=== PATIENT | female | born 1965 | race Caucasian/White ===

== ENCOUNTER → 2024-05-11 06:46 | Outpatient (REF) | payer BC, SELFPAY ==
[2024-05-11] MEDS: LEXISCAN 0.4 MG IV (08:27)
== END ==
LOC: RCS 06:46
PROVIDERS: ATTENDING PHYSICIAN Student in an Organized Health Care Education/Training Program; FAMILY PHYSICIAN Family Medicine
DX: R06.02 Shortness of breath (principal)
CPT/HCPCS: 78452; 93017; A9500; J2785